=== PATIENT | male | born 2000 | race African-American/Black ===

== ENCOUNTER 2020-06-28 04:08 | Emergency (ER) | payer SELFPAY ==
[~2020-06-28] VITALS: Ht 190.5 cm; Wt 108.9 kg
[2020-06-28 04:20] VITALS: BP 135/89
== END 2020-06-28 04:36 | disposition left against medical advice (07) ==
LOC: ER 04:16
DX: V49.9XXA Car occupant (driver) (passenger) injured in unspecified traffic accident, initial encounter; Y93.89 Activity, other specified; Y92.89 Other specified places as the place of occurrence of the external cause; Y99.8 Other external cause status